=== PATIENT | female | born 1950 | race Caucasian/White ===

== ENCOUNTER 2020-02-24 08:16 | Outpatient (CLI) | payer MEDICARE, SELFPAY ==
--- NOTE | ~2020-02-24 | MM_ITS ---
EXAMINATION: MM screening mike BI w aniya HISTORY: Screening TECHNIQUE: Craniocaudal and mediolateral oblique 3-D tomosynthesis images were obtained and synthetic 2-D images were generated. CAD analysis was submitted and interpreted. COMPARISON: Comparison to multiple prior studies sequentially, with oldest reviewed study dated 09/26. BREAST PARENCHYMAL COMPOSITION: There are scattered areas of fibroglandular density. FINDINGS: There is a cluster of calcifications in the upper central aspect of the right breast. The l eft breast is stable without evidence for malignancy. IMPRESSION: 1. Clustered indeterminate right breast calcifications. 2. Magnification views are recommended. BI-RADS Category 0: Incomplete: Needs additional imaging evaluation. Reviewed, dictated and finalized at location A. ET ASSET PROTECTION MANAGER
== END 2020-02-24 08:17 | disposition home or self-care (01) ==
PROVIDERS: PCP Internal Medicine
DX: Z12.31 Encounter for screening mammogram for malignant neoplasm of breast (principal); R92.8 Other abnormal and inconclusive findings on diagnostic imaging of breast
CPT/HCPCS: 77063; 77067

== ENCOUNTER 2020-03-28 13:11 | Outpatient (CLI) | payer MEDICARE, SELFPAY ==
--- NOTE | ~2020-03-28 | MM_ITS ---
EXAMINATION: MM diagnostic mike RT w aniya HISTORY: Right breast calcifications TECHNIQUE: Additional 3-D tomosynthesis images of the right breast were performed and synthetic 2-D i mages were generated. CAD analysis was submitted and interpreted. COMPARISON: Comparison to multiple prior studies sequentially, with oldest reviewed study dated 10/2014. BREAST PARENCHYMAL COMPOSITION: Breast composed of scattered areas of fibroglandular density FINDINGS: There is a cluster of indeterminate calcifications in the upper inner quadrant of the right breast, middle third. No suspicious masses, architectural distortion or skin thickening. IMPRESSION: 1. . Indeterminate calcifications upper inner quadrant of the right breast. 2. Stereotactic right breast biopsy recommended. BI-RADS category 4, suspicious findings. Reviewed, dictated and finalized at location A. WEB DEVELOPER
== END 2020-03-28 13:12 | disposition home or self-care (01) ==
LOC: ANHIMG 13:21
PROVIDERS: PCP Internal Medicine; Visit Provider Internal Medicine
DX: R92.8 Other abnormal and inconclusive findings on diagnostic imaging of breast (principal)
CPT/HCPCS: 77061; 77065; G0279

== ENCOUNTER 2020-03-31 13:19 | Outpatient (CLI) | payer MEDICARE, SELFPAY ==
--- NOTE | ~2020-03-31 | MM_ITS ---
MM consultation 03/31/2020 11:35 Indication: Stereotactic biopsy requested for calcifications Procedure: Several attempts were made to place the patient in breast compression for stereotactic bio psy. There is inadequate breast tissue for biopsy due to needle length. This was discussed with the p atient. This may be further evaluated with surgical wire localization biopsy. Another possibility wou ld be short-term follow-up diagnostic right mammogram in 3 months to assess for interval change. Miller mmend further conversation between the patient and her primary care physician/surgeon for determinati on subsequent examination. Reviewed, dictated and finalized at location A. INAL WORKER
== END 2020-03-31 13:20 | disposition home or self-care (01) ==
PROVIDERS: PCP Internal Medicine; Visit Provider Internal Medicine
DX: R92.8 Other abnormal and inconclusive findings on diagnostic imaging of breast (principal)
CPT/HCPCS: 99199

== ENCOUNTER 2020-04-11 10:00 | Outpatient (CLI) | payer MEDICARE, SELFPAY ==
--- NOTE | ~2020-04-11 | DEXA_ITS ---
Bone Density Report Name: Nori Braswell Age: 69 Sex: Female Ethnicity: White Date of : 1950 Indication: postmenopausal osteoporosis; height loss; Referring Provider: JAMES KIM Study: Bone densitometry was performed. Exam Date: April 11, 2020 Accession number: [id number] Bone Density: Region BMD T-score Z-score Classification AP Spine (L1-L4) 0.745 -2.7 -0.7 Osteoporosis Femoral Neck (Left) 0.611 -2.1 -0.4 Osteopenia Total Hip (Left) 0.727 -1.8 -0.3 Osteopenia Total Hip Bilateral Avg 0.709 -1.9 -0.5 Osteopenia Femoral Neck (Right) 0.624 -2.0 -0.2 Osteopenia Total Hip (Right) 0.691 -2.1 -0.6 Osteopenia World Health Organization criteria for BMD impression classify patients as: Normal (T-score at or above -1.0), Osteopenia (T-score between -1.0 and -2.5), or Osteoporosis (T-score at or below -2.5). 10-year Fracture Risk: FRAX not reported because: Some T-score for Spine Total or Hip Total or Femoral Neck at or below -2.5 Previous Exams: Region Exam Age BMD T-score BMD Change BMD Change Date g/cm2 vs Baseline vs Previous AP Spine(L1-L4) 04/11/2020 69 0.745 -2.7 -0.026(-3.3%)* -0.026(-3.3%)* 01/25/2018 67 0.770 -2.5 Total Hip(Left) 04/11/2020 69 0.727 -1.8 -0.055(-7.0%)* -0.055(-7.0%)* 01/25/2018 67 0.782 -1.3 Total Hip(Right) 04/11/2020 69 0.691 -2.1 -0.006(-0.9%) -0.006(-0.9%) 01/25/2018 67 0.697 -2.0 *Denotes significance at 95% confidence level, LSC for AP Spine = 0.022 g/cm2, LSC for Total Hip = 0.027 g/cm2 Clinical Information Provided by Patient: Has used the following medications: Calcium Patient maximum height was 68.5 Menopause Age: 50 Does not regularly consume dairy products Drinks caffeinated beverages Onset of menses at age 13 Number of children 1 Impression: The patient has osteoporosis, based on the Total Spine T-score. The BMD for the AP Spine(L1-L4) decreased, changing by -3.3% since the last DXA exam. The BMD for the Total Hip(Left) decreased, changing by -7.0% since the last DXA exam. Discussion: INCREASED RISK OF FRACTURE. BONE DENSITY IS UNDESIRABLY LOW AT ONE OR MORE SKELETAL SITES, CONSISTENT WITH POSTMENOPAUSAL OSTEOPOROSIS. This patient's lowest T-score meets the World Health Organization's (WHO) criteria for osteoporosis at one or more sites (T-score -2.5 or below). In untreated patients, the risk of osteoporotic fracture increases approximately two-fold for each 1.0 SD decrease in T-score.
== END 2020-04-11 10:01 | disposition home or self-care (01) ==
PROVIDERS: Family Provider Internal Medicine; PCP Internal Medicine
DX: Z78.0 Asymptomatic menopausal state (principal); M81.0 Age-related osteoporosis without current pathological fracture; M85.852 Other specified disorders of bone density and structure, left thigh; M85.851 Other specified disorders of bone density and structure, right thigh
CPT/HCPCS: 77080

== ENCOUNTER → 2020-05-07 06:21 | Outpatient (CLI) | payer MEDICARE, SELFPAY ==
[2020-05-07 19:10] LABS: SARS-CoV-2 RNA PCR Negative
== END ==
PROVIDERS: Family Provider Internal Medicine; PCP Internal Medicine; Visit Provider Surgery
DX: Z01.812 Encounter for preprocedural laboratory examination (principal); Z20.822 Contact with and (suspected) exposure to COVID-19
CPT/HCPCS: C9803; U0003; U0005

== ENCOUNTER 2020-05-11 01:08 | Day surgery (SDC) | payer MEDICARE, SELFPAY ==
--- NOTE | 2020-05-10 16:50 | PM.SD2 ---
Same Day Admit/Disch: HPI History of Present Illness Chief complaint: Microcalifications Right Breast Narrative: Nori Braswell is a 69 year old female Who was noted on screening mammogram to have an indeterminate cluster of microcalcifications in the upper inner quadrant of the right breast. Magnification compression views were done as well and stereotactic biopsy was recommended. However, the patient has lost weight and there was not enough breast tissue to perform stereotactic biopsy. She is taken to surgery now for needle localization right breast excisional biopsy under anesthesia. [facility] Surgical History Surgical History H/O tubal ligation Hx of cholecystectomy Family History Family History Mother Family history of malignant neoplasm Patient's mother is Family history of dementia Father CHF (congestive heart failure) Social History Social History Smoking status: Never smoker Second hand tobacco smoke exposure: No Alcohol intake: current Drinks per week: 2 Substance use: never Substance use type: does not use Gender identity (if verbalized by the patient): Female Spiritual care concerns: No Same Day Admit/Disch: Med Pre-admit Medications Home Medications Medication Instructions Recorded Confirmed Type Bifidobacterium infantis 4 mg 4 mg PO DAILY 10/20/19 05/04/20 History capsule calcium carbonate 500 mg calcium 500 mg PO DAILY 10/20/19 05/04/20 History (1,250 mg) tablet cholecalciferol (vitamin D3) 25 25 mcg PO DAILY 10/20/19 05/04/20 History mcg (1,000 unit) capsule cyclosporine 0.05 % eye drops in a 1 drop EACH EYE Q12H 10/20/19 05/04/20 History dropperette flaxseed oil 1,000 mg capsule 1,000 mg PO DAILY 10/20/19 05/04/20 History mecobalamin (vitamin B12) 1,000 1,000 mcg PO 3XW 04/01/20 05/04/20 History mcg chewable tablet Exam Const: General: comfortable, no acute distress, alert and awake HENMT: Head: normocephalic and atraumatic Mouth: Yes Normal oral and palatal mucosa present Eyes: Conjunctivae: conjunctivae normal Pupils: Equal, round and reactive pupils present EOM: EOMs intact bilaterally Neck: Neck: normal visual inspection, no lymphadenopathy and nontender Chest: Breast/axilla inspection: normal inspection of the breasts and normal inspection of the axillae Breast/axilla palpation: normal palpation of the breasts and normal palpation of the axillae Resp: Effort & Inspection: normal respiratory effort Auscultation: clear to auscultation bilaterally Cardio: Rate: regular rate Rhythm: regular rhythm Heart sounds: no gallops, no murmurs and no rubs GI: Inspection: non-distended GI Palp: Yes Soft to palpation, No Tenderness to palpation present (GI), No Hepatomegaly present and No Splenomegaly present Skin: Lesions: no lesions Rashes: no rashes Neuro: General: no focal motor deficits and CN's II-XI intact bilaterally Cranial nerves: Yes Equal, round and reactive pupils present, Yes Bilaterally intact EOM present, Yes facial symmetry and Yes Midline tongue present Speech: normal speech Motor exam (neuro): 5/5 motor strength present throughout and Motor abnormalities not present Extrem: General: no clubbing, cyanosis or edema and edema Psych: Affect: normal affect Thought process: Normal thought process present Insight: Good insight present (Psych) DS: Summary Time Spent with Patient Time attestation: Total time spent providing and/or coordinating discharge services: DS: Admitting Diagnosis Admitting Diagnosis Admitting Diagnosis: Microcalcifications right breast upper inner quadrant, BI-RADS 4 lesion.--- Patient unable to have stereotactic biopsy. We will proceed with needle localization right breast excisional biopsy under anesthesia. The procedure the risks the
--- NOTE | ~2020-05-11 | MM_ITS ---
EXAMINATION: MM needle loc RT, MM surgical specimen RT DATE: 05/11/2020 08:46 (accession [id number]), 05/11/2020 10:43 (accession [id number]) INDICATION: Wire localization for indeterminate right breast calcifications TECHNIQUE: The procedure for a mammography-guided needle localization was discussed with the patient. Risks and benefits were detailed including risks of bleeding and infection. The patient verbalized u nderstanding and agreed to proceed. A time out was performed to verify the patient's name, date of , and site of procedure. The cynthia ent was placed in craniocaudal compression, and the skin overlying the right breast was prepared in usual fashion. The skin and subcutaneous soft tissues were infiltrated with 1% lidocaine for local an esthesia. Utilizing mammography guidance, a needle was advanced into the right breast. Two confirmato ry films were obtained. The patient tolerated procedure without immediate complication. A specimen radiograph was performed. FINDINGS: Two view confirmatory films of the right breast demonstrate a needle with tip adjacent to r ight breast calcifications. The calcifications and wire are contained within the surgical specimen. IMPRESSION: 1. Successful mammography-guided right breast needle localization. Reviewed, dictated and finalized at location A. E SALES DELIVERY DRIVERS SUPERVISOR IMPRESSION: 1. Successful mammography-guided right breast needle localization.
[2020-05-11 06:39] VITALS: BP 149/77; PULSE 87; RESP 20; TEMP 36.7; O2SAT 100
[2020-05-11] MEDS: LACTATED RINGERS 1,000 ML 30 ML IV CONT (06:53)
--- NOTE | 2020-05-11 08:03 | SUR.PREOP ---
[id number] pt to needle loc per wheelchair
--- NOTE | 2020-05-11 08:46 | SUR.PREOP ---
pt returned from needle loc/comfort measures provided/no distress noted.
--- NOTE | 2020-05-11 09:50 | WPDANESEPPF ---
Anes - Initial Pre Proc Eval Procedure: Operation Date: 05/11/20 09:30 Proposed Procedures p Right Breast Biopsy With Ultrasound And Or Mammogram Guided Needle Localization - Sriram Cole MD Date/Time: 05/11/20 09:50 Surgeon: Sriram Cole MD Pre Op Diagnosis: Microcalifications Right Breast Patient Data Age: 69 Gender: F Height: 5 ft 5 in Weight: 53.7 kg Last Vital Signs Temp 98.1 F 05/11/20 06:39 Pulse 87 05/11/20 06:39 Resp 20 05/11/20 06:39 BP 149/77 H 05/11/20 06:39 Pulse Ox 100 05/11/20 06:39 Allergies Allergy/AdvReac Type Severity Reaction Status Date / Time Sulfa (Sulfonamide Allergy Mild Swelling Verified 05/11/20 08:04 Antibiotics) sulfanilamide Allergy Mild Swelling Verified 05/11/20 08:04 latex Allergy rash Verified 05/11/20 08:04 Home Medications Medication Instructions Recorded Confirmed Type Bifidobacterium infantis 4 mg 4 mg PO DAILY 10/20/19 05/11/20 History capsule calcium carbonate 500 mg calcium 500 mg PO DAILY 10/20/19 05/11/20 History (1,250 mg) tablet cholecalciferol (vitamin D3) 25 25 mcg PO DAILY 10/20/19 05/11/20 History mcg (1,000 unit) capsule cyclosporine 0.05 % eye drops in a 1 drop EACH EYE Q12H 10/20/19 05/11/20 History dropperette flaxseed oil 1,000 mg capsule 1,000 mg PO DAILY 10/20/19 05/11/20 History mecobalamin (vitamin B12) 1,000 1,000 mcg PO 3XW 04/01/20 05/11/20 History mcg chewable tablet Patient hx anesthesia problems: none Family hx anesthesia problems: none PMFSH Past Medical History Medical History (Updated 05/11/20 @ 09:50 by Brandon Blackman MD) Microcalcification of right breast on mammography Surgical History Surgical History H/O tubal ligation Hx of cholecystectomy Family History Family History Mother Family history of malignant neoplasm Patient's mother is Family history of dementia Father CHF (congestive heart failure) Social History Social History Smoking status: Never smoker Second hand tobacco smoke exposure: No Alcohol intake: current Drinks per week: 2 Substance use: unknown Substance use type: does not use Living arrangements: with family Gender identity (if verbalized by the patient): Female Spiritual care concerns: No Anes - Eval Final PreProcedure Day of Procedure 05/11/20 09:50 Patient weight: normal Heart: regular rate and rhythm Lungs: clear to auscultation Airway: Mallampati scale class II Neurological: alert and oriented Last oral intake: >/= 8 hours ASA classification: II Emergent: no Anesthetic plan: proceed Anesthesia type and monitoring: general GIVS and standard monitoring Informed Consent: The patient's anesthetic plan and its attendant risks and benefits were discussed with the patient/family/POA. Questions were solicited and answers provided to the satisfaction of the patient/family/POA.
--- NOTE | 2020-05-11 10:01 | WPDHPUPDATE1 ---
History and Physical Update Update Date/Time: 05/11/20 10:01 History and Physical has been reviewed, including an updated exam of the patient. There are NO changes in the patient's condition. Risks, benefits, and alternatives have been discussed and questions answered. Patient agrees to proceed with procedure.
[2020-05-11] MEDS: ceFAZolin 2 GM/D5W 50 ML 2 GM/50 ML BAG IVPB (10:06)
[2020-05-11] MEDS: BUPIVACAINE/EPINEPHRINE 0.5% 30 ML VIAL INFILTRATE (10:33)
[2020-05-11 11:05] VITALS: BP 102/61; PULSE 77; RESP 16; O2SAT 97
--- NOTE | 2020-05-11 11:14 | PM.PROC ---
Procedure Note - Detailed Date of procedure: 05/11/20 Pre-op diagnosis: Microcalifications Right Breast Microcalcifications right breast, upper midline Post-op diagnosis: same Procedure performed: Needle localization, right breast lumpectomy Description of procedure: The patient went to x-ray prior to surgery. Wire localization was performed. I reviewed the mammograms prior to surgery. The patient was then taken back to the operating room. IV sedation was administered and the right breast was carefully prepped and draped. Care was taken to not disturb the localizing wire. After additional review of the mammograms, the proposed incision was marked just above the nipple in the midline of the right breast. Local anesthesia was infiltrated in the area of the anticipated incision and in the deeper breast tissues. Incision was made and dissection was carried down through the skin and the superficial subcutaneous. Dissecting barely into the breast tissue I then dissected over to the wire. I carefully pulled the wire through the skin and brought it out through the wound. I then dissected a bit further into the breast tissue and then started performing the lumpectomy. A generous excision of breast tissue in the lower most aspect of the wire was performed. When I reached the hook of the wire I tried to make that the posterior extent of the excision. It seemed we might be a little close on the medial and cephalad margins. I went ahead and completed the excision with the wire in place. I marked the various edges of the breast specimen to orient them for the pathologist. The specimen with the wire was then sent to x-ray for mammogram. Mammography confirmed the presence of the microcalcifications in the specimen. I did go ahead and excise the medial wall of the wound and sent this as re-excision medial margin. I also re-excised the cephalad wall and sent that as re-excision of the cephalad margin. The wound was then made meticulously hemostatic with the cautery. The wound was closed in layers with 3 0 Monocryl suture. A running 4 0 Monocryl subcuticular skin suture was then placed. Wound was dressed with Exofin surgical adhesive. The patient was awakened and taken to outpatient surgery in good condition. Sponge and needle counts were correct x2. Anesthesia: MAC and local (0.5% Marcaine with epinephrine) Surgeon: Sriram Cole MD [employer] Professor: Kamille RAM Estimated blood loss (mL): 5 Drains: No Packing: No Pathology: yes (Right breast lumpectomy, re-excision medial margin, re-excision cephalad margin.) Complications: None Condition: stable Disposition: same day Findings: No gross evidence of malignancy. Specimen mammogram showed the microcalcifications were present in the specimen.
[2020-05-11 11:20] VITALS: BP 95/64; PULSE 78; RESP 16; O2SAT 97
[2020-05-11] MEDS: oxyCODONE HCL (*CRX) 5 MG TAB IR PO (11:31)
[2020-05-11 11:35] VITALS: BP 113/65; PULSE 75; RESP 16
[2020-05-11 11:45] VITALS: BP 133/66; PULSE 79; RESP 16
== END 2020-05-11 12:06 | disposition home or self-care (01) ==
PROVIDERS: Family Provider Internal Medicine; PCP Internal Medicine; Visit Provider Surgery
PROC: (CPT 19301; principal; 2020-05-11 09:30)
DX: N60.31 Fibrosclerosis of right breast (principal); N60.81 Other benign mammary dysplasias of right breast
CPT/HCPCS: 19301; 19281; 76098; 88305; 88307; 88311; A9270; C1769; C9803; J0690; J2250; J2704; J3010; J7120; U0003; U0005

== ENCOUNTER 2021-02-21 07:30 | Outpatient (RCR) | payer MEDICARE, SELFPAY ==
--- NOTE | 2021-01-24 11:50 | PTOPEVAL ---
Thank you for referring Nori Braswell to [facility].? The patient is scheduled to be seen for therapy? 1 x/week for 4 weeks. Please review, sign, date and return this plan of care TRINA. I agree with and certify that the following plan of care is medically necessary. Referring Physician Date Attending Provider: El Ramey MD Problem Diagnosis age related osteoporosis Additional Evaluation Detail History of lumpectomy: 05/11/20 Needle localization, right breast lumpectomy. Osteoporosis has progressed over the year. Subjective Information She has been treated by chiro Query Text:As Reported By Patient/ for her scoliosis Family She went to the gym 3x/wk prior to COVID. Workout consisted of TM, resistance ex for shoulder exercises and basic leg exercises. She was more active until 2 years ago. 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 Pain Assessment Self Report Self Report Pain Level 0 Pain Score Pain Score 0: Self Report Lower Extremity Muscle Strength Testing General Lower Extremity Strength Reason Not Measured WFL/Left,WFL/Right Gross Lower Extremity Strength hip flex: 4/5, ext: 4-/5, abduction: 3/5 knee ext: 4+/5, knee flex: 4-/ 5 ankle DF: 5/5 Upper Extremity Muscle Strength Testing General Upper Extremity Strength Reason Not Measured WFL/Left,WFL/Right Gross Upper Extremity Strength Comments grossly 4/5 to 4-/5 melissa UE joints Muscle Length Testing Muscle Length Testing Two-Joint Hip Flexor Shortened Muscles Short (R) Iliopsoas,Short (L) Iliopsoas,Short (R) Rectus Femoris,Short (L) Rectus Femoris Piriformis w/Hip Flexion <90 Degrees (R) Mild Tightness,(L) Mild Tightness Left Hamstring Length -20:(90 - 90 Position) Right Hamstring Length -20:(90 - 90 Position) Posture Standing Position Thoracic Spine Posture Fixed Scoliosis on (R), Increased Kyphosis Lumbar Spine Posture Flexible Scoliosis on (L) Shoulder Posture (L) Rounded,(R) Rounded,(R) Elevated Scapula Posture (L) Winged,(R) Winged,(L) Tipped,(R) Tipped Pel
--- NOTE | 2021-02-21 08:36 | PTOPEVAL ---
Physical Therapy Discharge Note Thank you for referring Nori Braswell to [facility].? Nori has attended 5 therapy visits to provide a home program to maintain her level of function. She demonstrates indep and compliance with home program. As a result of skilled therapy she demonstrates improved upper and lower extremity strength and decreased pain. She has reached maximal potential with skilled therapy services at this time. Will DC skilled PT at this time. Please review, sign, date and return this plan of care TRINA. I agree with and certify that the following plan of care is medically necessary. Referring Physician Date Attending Provider: El Ramey MD Problem Diagnosis age related osteoporosis Additional Evaluation Detail History of lumpectomy: 05/11/20 Needle localization, right breast lumpectomy. Osteoporosis has progressed over the year. Subjective Information She has been performing her Query Text:As Reported By Patient/ HEP 3x/wk. She has been Family working in the yard and running to appointments. She c/o increased back pain after working on her leaves over the weekend. Pain Assessment Self Report Pain Assessment Bilateral Buttock(s) Reported Pain Level 0 Lowest Pain Intensity 0 Greatest Pain Intensity 2 Lower Extremity Muscle Strength Testing General Lower Extremity Strength Gross Lower Extremity Strength hip flex: 4+/5, ext: 4/5, abduction: 3/5 knee ext: 5/5, knee flex: 5/5 ankle DF: 5/5 Upper Extremity Muscle Strength Testing General Upper Extremity Strength Gross Upper Extremity Strength Comments melissa shoulder 4+/5 all motions melissa elbow flex/ext: 5/5 PT Clinical Summary Pt referred to therapy due to osteoporosis She has attended 5 therapy visits from 01/24/21 to 02/21/21. As a result of skilled therapy services she demonstrates improved UE and LE strength, improved pain level with daily task, and improved adrienne with lifting task and daily task. She is compliant with her HEP at this time. Assessment: She demonstrates indep and compliance with HEP. She has achieved her goals except for 1 goal for hip
== END 2021-02-22 17:15 | disposition home or self-care (01) ==
LOC: ANHPT 07:30
PROVIDERS: PCP Internal Medicine; Visit Provider Obstetrics & Gynecology
DX: M81.0 Age-related osteoporosis without current pathological fracture (principal)
CPT/HCPCS: 97110; 97162

== ENCOUNTER 2021-05-16 14:46 | Outpatient (CLI) | payer MEDICARE, SELFPAY ==
--- NOTE | ~2021-05-16 | MM_ITS ---
EXAMINATION: MM screening [facility] BI w aniya HISTORY: Screening mammogram TECHNIQUE: Craniocaudal and mediolateral oblique 3-D tomosynthesis images were obtained and synthetic 2-D images were generated. CAD analysis was submitted and interpreted. COMPARISON: 03/28/2020, 02/24/2020, 01/21/2019 BREAST PARENCHYMAL COMPOSITION: There are scattered areas of fibroglandular density. FINDINGS: There has been interval excisional biopsy of right breast calcifications with mild postoper ative architectural distortion seen at the surgery site. There is no evidence of suspicious mass, peggy cification, or architectural distortion to suggest malignancy in either breast. There has been no kobi picious interval change. IMPRESSION: 1. No mammographic evidence of malignancy. 2. Recommend routine screening mammography in one year. BI-RADS Category 2: Benign finding(s). Reviewed, dictated and finalized at location A. TIONAL HORTICULTURE INSTRUCTOR
== END 2021-05-16 14:47 | disposition home or self-care (01) ==
LOC: ANHIMG 14:47
PROVIDERS: PCP Internal Medicine; Visit Provider Obstetrics & Gynecology
DX: Z12.31 Encounter for screening mammogram for malignant neoplasm of breast (principal)
CPT/HCPCS: 77063; 77067

== ENCOUNTER 2022-06-26 08:23 | Outpatient (CLI) | payer MEDICARE, SELFPAY ==
--- NOTE | ~2022-06-26 | MM_ITS ---
EXAMINATION: MM screening mike BI w aniya HISTORY: Screening mammogram TECHNIQUE: Craniocaudal and mediolateral oblique 3-D tomosynthesis images were obtained and synthetic 2-D images were generated. CAD analysis was submitted and interpreted. COMPARISON: 05/16/2021 and 02/24/2020 and 11/26/2017 BREAST PARENCHYMAL COMPOSITION:There are scattered areas of fibroglandular density. FINDINGS: No suspicious mass, calcification, or architectural distortion are identified in either marquita ast to suggest malignancy. There has been no suspicious interval change. IMPRESSION: No mammographic evidence of malignancy. Recommend routine screening mammography in one year. BI-RADS Category 1: Negative Reviewed, dictated and finalized at location .
== END 2022-06-26 08:24 | disposition home or self-care (01) ==
PROVIDERS: PCP Internal Medicine; Visit Provider Obstetrics & Gynecology
DX: Z12.31 Encounter for screening mammogram for malignant neoplasm of breast (principal)
CPT/HCPCS: 77063; 77067

== ENCOUNTER 2022-09-03 08:44 | Outpatient (CLI) | payer MEDICARE, SELFPAY ==
--- NOTE | ~2022-09-03 | DEXA_ITS ---
Bone Density Report Name: YUMIKO ORTEGA Age: 72 Sex: Female Ethnicity: White Date of : 1950 Indication: postmenopausal osteoporosis; height loss; Referring Provider: ZAIRA RAMÍREZ Study: Bone densitometry was performed. Exam Date: September 03, 2022 Accession number: [id number] Bone Density: Region BMD T-score Z-score Classification AP Spine(L1-L4) 0.730 -2.9 -0.6 Osteoporosis Femoral Neck (Left) 0.598 -2.3 -0.3 Osteopenia Total Hip (Left) 0.654 -2.4 -0.7 Osteopenia Femoral Neck (Right) 0.575 -2.5 -0.6 Osteoporosis Total Hip (Right) 0.592 -2.9 -1.2 Osteoporosis Total Hip Mean 0.623 -2.7 -1.0 Osteoporosis World Health Organization criteria for BMD impression classify patients as: Normal (T-score at or above -1.0), Osteopenia (T-score between -1.0 and -2.5), or Osteoporosis (T-score at or below -2.5). 10-year Fracture Risk: FRAX not reported because: Some T-score for Spine Total or Hip Total or Femoral Neck at or below -2.5 Previous Exams: Region Exam Age BMD T-score BMD Change BMD Change Date g/cm2 vs Baseline vs Previous AP Spine (L1-L4) 09/03/2022 72 0.730 -2.9 -0.040 (-5.2%) -0.014 (-1.9%) 04/11/2020 69 0.745 -2.7 -0.026 (-3.3%) -0.026 (-3.3%) 01/25/2018 67 0.770 -2.5 Total Hip(Left) 09/03/2022 72 0.654 -2.4 -0.128 (-16.4% -0.073 (-10.1% 04/11/2020 69 0.727 -1.8 -0.055 (-7.0%) -0.055 (-7.0%) 01/25/2018 67 0.782 -1.3 Total Hip(Right) 09/03/2022 72 0.592 -2.9 -0.105 (-15.0% -0.099 (-14.3% 04/11/2020 69 0.691 -2.1 -0.006 (-0.9%) -0.006 (-0.9%) 01/25/2018 67 0.697 -2.0 *Denotes significance at 95% confidence level, LSC for AP Spine = 0.022 g/cm2, LSC for Total Hip = 0.027 g/cm2 Clinical Information Provided by Patient: Patient maximum height was 67 Menopause Age: 50 Drinks caffeinated beverages Onset of menses at age 12 Number of children 1 Impression: The patient has osteoporosis, based on the Total Spine T-score. The BMD for the Total Hip(Left) decreased, changing by -10.1% since the last DXA exam. The BMD for the Total Hip(Right) decreased, changing by -14.3% since the last DXA exam. Discussion: INCREASED RISK OF FRACTURE. BONE DENSITY IS UNDESIRABLY LOW AT ONE OR MORE SKELETAL SITES, CONSISTENT WITH POSTMENOPAUSAL OSTEOPOROSIS. This patient's lowest T-score meets the World Health Organization's (WHO) criteria for osteoporosis at one or more sites (T-score -2.5 or below).
== END 2022-09-03 08:45 | disposition home or self-care (01) ==
LOC: ANHIMG 08:45
PROVIDERS: PCP Internal Medicine; Visit Provider Obstetrics & Gynecology
DX: M81.0 Age-related osteoporosis without current pathological fracture (principal); M85.852 Other specified disorders of bone density and structure, left thigh
CPT/HCPCS: 77080

== ENCOUNTER 2023-07-06 10:04 | Outpatient (CLI) | payer MEDICARE, SELFPAY ==
--- NOTE | ~2023-07-06 | MM_ITS ---
EXAMINATION: MM screening mike BI w aniya HISTORY: Screening mammogram TECHNIQUE: Craniocaudal and mediolateral oblique 3-D tomosynthesis images were obtained and synthetic 2-D images were generated. CAD analysis was submitted and interpreted. COMPARISON: June 26, 2022, May 16, 2021 bilateral screening mammogram examinations BREAST PARENCHYMAL COMPOSITION: There are scattered areas of fibroglandular density. FINDINGS: There is no evidence of suspicious mass, calcification, or architectural distortion to sugg est malignancy in either breast. There has been no suspicious interval change. IMPRESSION: 1. No mammographic evidence of malignancy. 2. Recommend routine screening mammography in one year. BI-RADS Category 1: Negative Reviewed, dictated and finalized at location A.
== END 2023-07-06 10:05 | disposition home or self-care (01) ==
LOC: ANHIMG 10:10
PROVIDERS: PCP Internal Medicine; Visit Provider Obstetrics & Gynecology
DX: Z12.31 Encounter for screening mammogram for malignant neoplasm of breast (principal)
CPT/HCPCS: 77063; 77067

== ENCOUNTER 2024-08-13 08:56 | Outpatient (CLI) | payer MEDICARE, SELFPAY ==
--- NOTE | ~2024-08-13 | MM_ITS ---
EXAMINATION: MM screening mike BI w aniya HISTORY: Screening TECHNIQUE: Craniocaudal and mediolateral oblique 3-D tomosynthesis images were obtained and synthetic 2-D images were generated. CAD analysis was submitted and interpreted. COMPARISON: Comparison to multiple prior studies sequentially, with oldest reviewed study dated 11/26. BREAST PARENCHYMAL COMPOSITION: Not dense: There are scattered areas of fibroglandular density. FINDINGS: There is distortion of the right breast, consistent with previous biopsy. There is no evide nce of suspicious mass, calcification, or architectural distortion to suggest malignancy in either br east. There has been no suspicious interval change. IMPRESSION: 1. No mammographic evidence of malignancy. 2. Recommend routine screening mammography in one year. BI-RADS Category 2: Benign finding(s). Reviewed, dictated and finalized at location A.
--- OUTSIDE RECORDS SUMMARY | 2024-08-13 09:06 | XMS_ITS | Encounter Summary ---
Author Organization [facility] Address [address] [place] [address] Phone Care Team Providers Care Architectural Drafter Name Role Phone Curt Linn MD Primary Care Provider +1- [phone] Encounter Details Date Type Department Care Team (Late st Contact Info) Description 11/29/2016 Orders Only [facility] [address] [facility] [address], [place] [address] Marlon Oneal MD [address] [facility] [address], [place] [id number] Social History Tobacco Use Types Packs/Day Years Used Date Smoking Tobacco: Never Alcohol Use Standard Drinks/Week Comments Yes 0 (1 standard drink = 0.6 oz pur e alcohol) Comments Unknown Sex and Gender Information Value Date Recorded Sex Assigned at Not on file Legal Sex Female 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 Gender Identity Not on file Sexual Orientation Not on file documented as of this encounter Plan of Treatment Not on file documented as of this encounter Procedures Procedure Name Priority Date/Time Associated Diagnosis Comments SCREENING MAMMOGRAM 2D BILATERAL Schedule Routine, Read Routine (OP Routine) 11/07/2016 documented in this encounter Results * Screening Mammogram 2D Bilateral (11/07/2016) Anatomical Region Laterality Modality Breast Bilateral Mammography Marlon Oneal MD IMG MAMMO PROCEDURES Final Resul t documented in this encounter Visit Diagnoses Not on filedocumented in this encounter Care Teams Architectural Drafter Relationship Specialty Start Date End Date Curt Linn MD [address] [place] [address] PCP - General 12/03/14 documented as of this encounter
--- OUTSIDE RECORDS SUMMARY | 2024-08-13 09:06 | XMS_ITS | Referral Summary ---
Author Organization [facility] Address [address] [place] [address] Phone Care Team Providers Care Tile Setter Apprentice Name Role Phone Curt Linn MD Primary Care Provider +1- [phone] Allergies Active Allergy Reactions Criticality Noted Date Comments Latex Sulfanilamide Medications calcium carbonate-vitam in D3 (CALCIUM 600 + D,3,) 600 mg calcium- 200 unit capsule 0 0 6 Active cycloSPORINE (RESTASIS) 0.05 % ophthalmic emulsion instill 1 drop by ophthalmic route every 12 hours into affected eye(s) 0 2 Active estradiol (ESTRACE) 0.01 % (0.1 mg/gram) vaginal cream kulwant (1G) by Topical route 2 times every week 42 3 2 Active flaxseed oil oil Active cholecalciferol (VITAMIN D3) 5,000 unit tablet Active doxycycline (VIBRAMYCIN) 100 mg capsule Take 100 mg by mouth 2 (two) times a day Ending 03/17/2020 Active metroNIDAZOLE (NORITRATE) 1 % cream Apply topically daily Active Active Problems Problem Noted Date Diagnosed Date Vaginal atrophy 03/19/2020 Assessment & Plan (03/19/2020 10:45 PM THIRD HELPER): Pelvic exam and breast exam done. Has f/u views of right breast scheduled. Schedule DEXA. Almost out of Estrace cream but plans to stop it. Return in one year. Encounter for gynecological examination without abnormal finding 12/18/2017 Assessment & Plan (12/29/2018 2:27 PM CDT): Pap smear and breast exam done. Schedule mammogram and colonoscopy. Doesn't think she needs estrace filled yet. May want to order from [facility]. Return in one year. Assessment & Plan (12/18/2017 9:51 PM CDT): Pelvic exam and breast exam done. Schedule DEXA (Sg) Rtn in one year. 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 on file Not on file Not on file Last Filed Vital Signs Vital Sign [place] Time Taken Comments Blood Pressure 146/80 03/16/2020 10:53 AM THIRD HELPER Pulse - - Temperature - - Respiratory Rate - - Oxygen Saturation - - Inhaled Oxygen Concentration - - Weight 54 kg (119 lb) 03/16/2020 10:53 AM THIRD HELPER Height 167.6 cm (5' 6) 03/16/2020 10:53 AM THIRD HELPER Body Mass Index 19.21 03/16/2020 10:53 AM THIRD HELPER Plan of Treatment Not on file Insurance [facility] MEDIC[facility] ADVANTAGE [facility] MEDIC[facility] ADVANTAGE Care Teams Tile Setter Apprentice Relationship Specialty Start Date End Date Curt Linn MD [address] [facility] [address] [place] [address] PCP - General 12/03/14
--- OUTSIDE RECORDS SUMMARY | 2024-08-13 09:06 | XMS_ITS | Continuity of Care Document ---
Author Organization [facility] Address [address] [place] [address] Phone Care Team Providers Care Voice Professor Name Role Phone Aneudy Vaughan MD Unavailable Unavailable Procedures Procedure Date Office/outpatient Visit, Est Eye Exam Established Pt Office/outpatient Visit, Est Office/outpatient Visit, Est Advance Directives Directive Yes / No Effective Date File Name No Information Encounters Encounter Description Practice Location Reason(s) For Visit Diagnoses Date Provider Providers Copied on Encounter Office/outpat ient Visit, [facility], [id number] [place] [address] [address], [place], [place], [id number], [place] tel:[phone] [facility] No Information 8 Clement Amado. [address] [facility], [address], [place], [place], [address], [place]. tel:[phone] [facility], [address] [place] [address] [address], [place], [place], [address], [place] tel:[phone] [facility] No Information 7 Carla Miguel. [address] [facility] , [address], [place], [address], [place]. tel:[phone] Office/outpat ient Visit, [facility], [address] [place] [address] [address], [place], [place], [address], [place] tel:[phone] [facility] No Information [address] Himanshu. [address], [address], [place], [address], [place]. tel:[phone] Office/outpat ient Visit, [facility], [address], [place], [place], [address], [place] tel:[phone] [facility] No Information [address] W[address] Amado. [address] [facility], [address], [place], [place], [address], [place]. tel:[phone] Family History Family Member Type Diagnosis Age At Onset No Information Payers Payer name Insurance type Covered libertarian ID Authoriza tion(s) No Information Social History Type Description Quantity Date Captured Comments Sex Female Smoking Status No Information Chief Complaint And Reason For Visit No Information Reason For Referral Reason For Referral No Information History Of Present Illness Encounter Date Complaint History Of Prese nt Illness No Information Functional Status Date Functional Assessmen t No Information Instructions Date Instruction Additional Infor mation No Information Assessments Type Assessment Date No Information Patient Care Teams Name Effective Dates (start - stop) Status Members No Information
--- OUTSIDE RECORDS SUMMARY | 2024-08-13 09:06 | XMS_ITS | Clinical Summary ---
Author Organization [facility] Address [address] [place] [address] Phone Care Team Providers Care Pathology Assistant Name Role Phone Curt Linn MD Primary Care Provider +1- [phone] Allergies Active Allergy Reactions Criticality Noted Date [...] 03/19/2020 Assessment & Plan (03/19/2020 10:45 PM HOME AND SCHOOL VISITOR): Pelvic exam and breast exam done. Has [...] Schedule DEXA (Sg) Rtn in one year. 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 file Not on file Not on file Obstetrics History Para Term AB IAB SAB Ectopic Multiple Livin g Live Births 1 1 1 1 Date Outcome GA Total Labor Labor/2nd/3rd Weight Sex Type Anes PTL Era A1 A5 Name Clin 1970 Para 4.082 kg (9 lb) M Living Humphrey Shrestha Last Filed Vital Signs Vital Sign [place] Time Taken Comments Blood Pressure 146/80 03/16/2020 10:53 AM HOME AND SCHOOL VISITOR Pulse - - Temperature - - Respiratory Rate - - Oxygen Saturation - - Inhaled Oxygen Concentration - - Weight 54 kg (119 lb) 03/16/2020 10:53 AM HOME AND SCHOOL VISITOR Height 167.6 cm (5' 6) 03/16/2020 10:53 AM HOME AND SCHOOL VISITOR Body Mass Index 19.21 03/16/2020 10:53 AM HOME AND SCHOOL VISITOR Plan of Treatment Not on file Insurance MEDICARE ADVANTAGE [facility] MEDICARE Address: [address] [place] [address] MEDICARE ADVANTAGE [facility] MEDICARE Address: [address] [address] Care Teams Pathology Assistant Relationship Specialty Start Date End Date Curt Linn MD [address] [facility] [address] [place] [address] PCP - General 12/03/14
--- OUTSIDE RECORDS SUMMARY | 2024-08-13 09:06 | XMS_ITS | Encounter Summary ---
Author Organization [facility] Address [address] [place] [address] Phone Care Team Providers Care Operating Room Nurse Name Role Phone Curt Linn MD Primary Care Provider +1- [phone] Encounter Details Date Type Department Care Team (Late st Contact Info) Description 11/15/2016 Orders Only [facility] [address] [facility] [address], [place] [address] Marlon Oneal MD [address] [facility] [address], [place] [id number] Social History Tobacco Use Types Packs/Day Years Used Date Smoking Tobacco: Never Alcohol Use Standard Drinks/Week Comments Yes 0 (1 standard drink = 0.6 oz pur e alcohol) Comments Unknown Sex and Gender Information Value Date Recorded Sex Assigned at Not on file Legal Sex Female 11:06 PM ELECT EQUIP MAINT ENG Gender Identity Not on file Sexual Orientation Not on file documented as of this encounter Plan of Treatment Not on file documented as of this encounter Procedures Procedure Name Priority Date/Time Associated Diagnosis Comments SCREENING MAMMOGRAM 2D BILATERAL Schedule Routine, Read Routine (OP Routine) 11/06/2016 documented in this encounter Results * Screening Mammogram 2D Bilateral (11/06/2016) Anatomical Region Laterality Modality Breast Bilateral Mammography Marlon Oneal MD IMG MAMMO PROCEDURES Final Resul t documented in this encounter Visit Diagnoses Not on filedocumented in this encounter Care Teams Operating Room Nurse Relationship Specialty Start Date End Date Curt Linn MD [address] [place] [address] PCP - General 12/03/14 documented as of this encounter
== END 2024-08-13 08:57 | disposition home or self-care (01) ==
LOC: ANHIMG 08:58
PROVIDERS: PCP Internal Medicine; Visit Provider Nurse Practitioner Family
DX: Z12.31 Encounter for screening mammogram for malignant neoplasm of breast (principal)
CPT/HCPCS: 77063; 77067

== ENCOUNTER 2024-10-07 07:34 | Outpatient (CLI) | payer MEDICARE, SELFPAY ==
--- NOTE | ~2024-10-07 | DEXA_ITS ---
Bone Density Report Name: YUMIKO ORTEGA Age: 74 Sex: Female Ethnicity: White Date of : 1950 Indication: postmenopausal; screening for osteoporosis; height loss; Referring Provider: YAMINI CONNER Study: Bone densitometry was performed. Exam Date: October 07, 2024 Accession number: [id number] Bone Density: Region BMD T-score Z-score Classification AP Spine(L1-L4) 0.778 -2.4 -0.1 Osteopenia Femoral Neck (Left) 0.592 -2.3 -0.3 Osteopenia Total Hip (Left) 0.707 -1.9 -0.2 Osteopenia Femoral Neck (Right) 0.571 -2.5 -0.5 Osteoporosis Total Hip (Right) 0.622 -2.6 -0.9 Osteoporosis Total Hip Mean 0.665 -2.3 -0.6 Osteopenia World Health Organization criteria for BMD impression classify patients as: Normal (T-score at or above -1.0), Osteopenia (T-score between -1.0 and -2.5), or Osteoporosis (T-score at or below -2.5). 10-year Fracture Risk: FRAX not reported because: Some T-score for Spine Total or Hip Total or Femoral Neck at or below -2.5 Treated for osteoporosis Clinical Information Provided by Patient: Is being treated for osteoporosis Has used the following medications: Boniva (i.e. ibandronate), Vitamin D, Calcium Patient maximum height was 68 Menopause Age: 50 Drinks caffeinated beverages Onset of menses at age 12 Number of children 1 Impression: The patient has osteoporosis, based on the Right Total Hip T-score. Discussion: It is important to ask patients whether they are taking their medications and to encourage continued and appropriate compliance with their osteoporosis therapies to reduce fracture risk. It is also important to review their risk factors and encourage appropriate calcium and vitamin D intakes, exercise, fall prevention and other lifestyle measures. Follow-Up: Consider a repeat BMD and Vertebral Fracture Assessment (VFA) exam in 2 years or sooner if medically necessary, to reassess this patient's status. Reported by: MELANIE on 10/07/2024 8:19:00 AM. Reviewed, dictated and finalized at location A.
--- OUTSIDE RECORDS SUMMARY | 2024-10-07 07:41 | XMS_ITS | Referral Summary ---
Author Organization [facility] Address [address] [place] [address] Phone Care Team Providers Care Child Adolescent Psychiatrist Name Role Phone Curt Linn MD Primary Care Provider +1- [phone] Allergies Active Allergy Reactions Criticality Noted Date [...] 03/19/2020 Assessment & Plan (03/19/2020 10:45 PM PRESSURE TEST OPERATOR): Pelvic exam and breast exam done. 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 Not on file Not on file Last Filed Vital Signs Vital Sign [place] Time Taken Comments Blood Pressure 146/80 03/16/2020 10:53 AM PRESSURE TEST OPERATOR Pulse - - Temperature - - Respiratory Rate - - Oxygen Saturation - - Inhaled Oxygen Concentration - - Weight 54 kg (119 lb) 03/16/2020 10:53 AM PRESSURE TEST OPERATOR Height 167.6 cm (5' 6) 03/16/2020 10:53 AM PRESSURE TEST OPERATOR Body Mass Index 19.21 03/16/2020 10:53 AM PRESSURE TEST OPERATOR Plan of Treatment Not on file Insurance [facility] MEDICARE ADVANTAGE [facility] MEDICARE ADVANTAGE Care Teams Child Adolescent Psychiatrist Relationship Specialty Start Date End Date Curt Linn MD [address] [facility] [address] [place] [address] PCP - General 12/03/14
--- OUTSIDE RECORDS SUMMARY | 2024-10-07 07:41 | XMS_ITS | Encounter Summary ---
Author Organization [facility] Address [address] [place] [address] Phone Care Team Providers Care Senior Client Advisor Name Role Phone Curt Linn MD Primary Care Provider +1- [phone] Encounter Details Date Type Department Care Team (Late st Contact Info) Description 11/29/2016 Orders Only [facility] [address] [facility] [address], [place] [address] Marlon Oneal MD [address] [facility] [address] [address], [place] [id number] Social History Tobacco Use Types Packs/Day Years Used Date Smoking Tobacco: Never Alcohol Use Standard Drinks/Week Comments Yes 0 (1 standard drink = 0.6 oz pur e alcohol) Comments Unknown Sex and Gender Information Value Date Recorded Sex Assigned at Not on file Legal Sex Female 11:06 PM TURF AND GROUNDS SUPERVISOR Gender Identity Not on file Sexual [...] on filedocumented in this encounter Care Teams Senior Client Advisor Relationship Specialty Start Date End Date Curt Linn MD [address] [facility] [place] [address] PCP - General 12/03/14 documented as of this encounter
--- OUTSIDE RECORDS SUMMARY | 2024-10-07 07:41 | XMS_ITS | Continuity of Care Document ---
Author Organization [facility] Address [address] [place] [address] Phone Care Team Providers Care Child And Adolescent Psychologist Name Role Phone Aneudy Vaughan MD Unavailable Unavailable Procedures Procedure Date Office/outpatient Visit, Est Eye Exam Established Pt Office/outpatient Visit, Est Office/outpatient Visit, Est Advance Directives Directive Yes / No Effective Date File Name No Information Encounters Encounter Description Practice Location Reason(s) For Visit Diagnoses Date Provider Providers Copied on Encounter Office/outpat ient Visit, [facility], [address] [place] [address] [address], [place], [place], [address], [place] tel:[phone] [facility] No Information 8 Clement Amado. [address] [facility], [address], [place], [place], [address], [place]. tel:[phone] [facility], [address] [place] [address] [address], [place], [place], [address], [place] tel:[phone] [facility] No Information 7 Carla Miguel. [address] [facility] , [address], [place], [address], [place]. tel:[phone] Office/outpat ient Visit, [facility], [address] [place] [address] [address], [place], [place], [address], [place] tel:[phone] [facility] No Information [address] Himanshu. [address], [place], [address], [place]. tel:[phone] Office/outpat ient Visit, [facility], [address], [place], [place], [address], [place] tel:[phone] [facility] No Information [address] Amado. [address] [facility], [place], [place], [address], [place]. tel:[phone] Family History Family Member Type Diagnosis Age At Onset No Information Payers Payer name Insurance type Covered green party ID Authoriza tion(s) No Information Social History [...]
--- OUTSIDE RECORDS SUMMARY | 2024-10-07 07:41 | XMS_ITS | Encounter Summary ---
Author Organization [facility] Address [address] [place] [address] Phone Care Team Providers Care Processing Rep Name Role Phone Curt Linn MD Primary Care Provider +1- [phone] Encounter Details Date Type Department Care Team (Late st Contact Info) Description 11/15/2016 Orders Only [facility] [address] [facility] [address], [place] [address] Marlon Oneal MD [address] [facility] [address], [place] [id number] Social History Tobacco Use Types Packs/Day Years Used Date Smoking Tobacco: Never Alcohol Use Standard Drinks/Week Comments Yes 0 (1 standard drink = 0.6 oz pur e alcohol) Comments Unknown Sex and Gender Information Value Date Recorded Sex Assigned at Not on file Legal Sex Female 11:06 PM GROCERY PACKER Gender Identity Not on file Sexual Orientation [...] on filedocumented in this encounter Care Teams Processing Rep Relationship Specialty Start Date End Date Curt Linn MD [address] [facility] [address] PCP - General 12/03/14 documented as of this encounter
--- OUTSIDE RECORDS SUMMARY | 2024-10-07 07:41 | XMS_ITS | Clinical Summary ---
Author Organization [facility] Address [address] [place] [address] Phone Care Team Providers Care Bellperson Name Role Phone Curt Linn MD Primary Care Provider +1- [phone] Allergies Active Allergy Reactions Criticality Noted Date [...] 03/19/2020 Assessment & Plan (03/19/2020 10:45 PM FILTERER): Pelvic exam and breast exam done. 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
== END 2024-10-07 07:35 | disposition home or self-care (01) ==
LOC: ANHIMG 07:39
PROVIDERS: PCP Internal Medicine; Visit Provider Nurse Practitioner Family
DX: Z78.0 Asymptomatic menopausal state (principal); M85.88 Other specified disorders of bone density and structure, other site; M85.852 Other specified disorders of bone density and structure, left thigh; M85.851 Other specified disorders of bone density and structure, right thigh; M81.0 Age-related osteoporosis without current pathological fracture
CPT/HCPCS: 77080